=== PATIENT | female | born 1985 | race American Indian/Alaskan Native ===

== ENCOUNTER 2017-09-08 16:13 | Emergency (ER) | payer SELFPAY | END 2017-09-08 16:45 | disposition other institution (70) | LOC: LB.ED 16:13 | DX: Z53.21 Procedure and treatment not carried out due to patient leaving prior to being seen by health care provider (principal) ==

== ENCOUNTER 2017-09-08 17:10 | Observation (INO) | payer SELFPAY ==
[2017-09-08] MEDS ORDERED: Sodium Chloride 0.9% 1,000 ML IV ONE (18:00)
[2017-09-08] MEDS ORDERED: Acetaminophen 650 MG Tab.ER ONE (18:50)
[2017-09-08] MEDS: Acetaminophen 325 MG Tab PO PRN (18:51)
[2017-09-08] MEDS: Sodium Chloride 0.9% 1,000 ML IV SCH (19:23)
[2017-09-08] MEDS ORDERED: oxyCODONE 5 MG Tab PO ONE (19:53)
[2017-09-08] MEDS ORDERED: Ondansetron 4 MG/2 ML SDV ONE ×2 (20:56→20:58)
[2017-09-08] MEDS: Ondansetron 4 MG/2 ML SDV IVPUSH PRN (21:05)
[2017-09-08] MEDS ORDERED: GI Cocktail Oral Solution 30 ML PO ONE (22:08)
--- NOTE | 2017-09-09 00:37 | HP ---
DATE OF ADMISSION: 09/08/2017 HISTORY OF PRESENT ILLNESS: This 31-year-old lady is being admitted through the clinic with abdominal pain, nausea, and vomiting. These symptoms started yesterday. She states that she has vomited multiple times. She does have Zofran that she has been taking at home 4 mg. She does not feel it is helping her. The pain is most prominent in the upper right quadrant, but the entire abdomen feels irritated at this point. The patient does not feel feverish. She denies any recent falls or injuries. The patient is . She is approximately 7 weeks gestation. She is not having any vaginal discharge. She tells me that she has a 1-year-old baby who was sick yesterday with nausea and vomiting, but the baby is doing well today. The patient is here visiting. She is from out of the area. PAST MEDICAL HISTORY: The patient has 3 children at home. They are healthy. She states she has had a lot of problems with morning sickness, but this feels a little different. She takes a multivitamin only as well as the Zofran p.r.n. She is not on any other medications. SURGICAL HISTORY: 1. Cholecystectomy. 2. x3. OBJECTIVE: GENERAL APPEARANCE: The patient is awake and alert. She currently rates her pain at 5/10. VITAL SIGNS: Reviewed. Initially blood pressure was elevated when taken in the clinic at 150/105, when taken in the hospital, it was 111/87. She is afebrile. Pulse is 86, respirations 16, O2 sats are 99% on room air. LUNGS: Clear. CARDIAC: Heart sounds distinct. ABDOMEN: Soft. There is mild tenderness diffusely with palpation. The patient has more significant pain involving the midline epigastric area out to the right upper quadrant area with palpation. Bowel sounds are present. SKIN: Warm and dry. ASSESSMENT AND PLAN: The patient is being admitted for observation. She will be given 1 L of fluid normal saline in a bolus form followed by infusion of 125 per hour. We will increase her Zofran to 8 mg IV q.6 hours p.r.n. We will try some Tylenol 650 mg every 4 hours for pain control, and the patient will be on a clear diet. We will monitor her progress through the night and see how she does by morning. CRS/MODL MTDD
[2017-09-09] MEDS: Sodium Chloride 0.9% 1,000 ML IV SCH ×2 (03:40→12:09)
[2017-09-09] MEDS: Ondansetron 4 MG/2 ML SDV IVPUSH PRN ×2 (03:55→08:08)
[2017-09-09] MEDS ORDERED: Pantoprazole 40 MG Vial IVPUSH ONE (04:15)
[2017-09-09] MEDS ORDERED: [UNRECOGNIZED DRUG - REMARK] PO SCH (08:00)
[2017-09-09] MEDS ORDERED: Metoclopramide 10 MG Tab PO ONE (15:24)
--- NOTE | 2017-09-09 15:58 | US ---
DATE OF SERVICE: 09/09/17 CLINICAL DATA: Abd pain ABDOMEN ULTRASOUND: The gallbladder is absent, consistent with the patient's surgical history. The liver is normal size with homogeneous echogenicity. No focal hepatic lesions. No intra or extrahepatic biliary duct dilatation. The common bile duct measures 4 mm. The pancreas appears normal. The spleen appears normal. The right and left kidneys appear normal. No aortic aneurysm. No masses. No abnormal fluid collections. [id number] [facility]
--- NOTE | 2017-09-09 16:01 | US ---
DATE OF SERVICE: 09/09/17 CLINICAL DATA: R/O ECTOPIC OB ULTRASOUND: There is a single intrauterine containing a pole with a crown rump length of 1.4 cm, consistent with 7 weeks, 5 days gestation. Cardiac activity was noted. The heart rate is 156 bpm. The ÁNGEL is 04/23/2016. [id number] [facility]
[2017-09-09] MEDS ORDERED: Metoclopramide 10 MG Tab ONE (19:07)
--- NOTE | 2017-09-10 01:57 | DISCH ---
This lady has been here since yesterday evening for hyperemesis gravidarum. She was given IV fluids last evening and overnight. She initially was on Zofran. We increased the dose to 8 mg IV, and she was given 1 dose of Protonix IV early this morning after a GI cocktail produced some relief. The patient's abdominal pain has slowly but surely decreased, but she continued to have problems with nausea and vomiting or retching activities especially after trying to eat anything. She was on a clear liquid diet. This afternoon, I consulted with Dr. Galvez after which per his suggestion, I gave the patient Reglan 10 mg p.o. as well as meclizine 25 mg p.o. Within an hour or so, the patient stated that her nausea was gone, and she is feeling much better. She did eat most of her supper tonight, advancing to a regular diet and states that she is not having any nausea. She has just mild abdominal pressure. She feels this is from the nausea and vomiting that she had earlier. The patient states that she feels good. At this point, the patient will be discharged. We will send her home with some more Reglan tablets and meclizine tablets to take as needed, and I do want the patient to follow up with regular doctor within a couple of days. They plan on returning home tomorrow. They live in [place]. RIKA/[place] /[id number]
== END 2017-09-09 20:12 | disposition home or self-care (01) ==
LOC: LB.CLINIC 17:10 → UNDOADMOB 17:50 → LB.MS 17:50
PROVIDERS: ADMIT Physician Assistant; ATTEND Nurse Practitioner Family
DX: O21.0 Mild hyperemesis gravidarum (principal); Z3A.01 Less than 8 weeks gestation of pregnancy; Z79.899 Other long term (current) drug therapy
CPT/HCPCS: 36415; 76700; 76801; 80048; 81001; 84702; 85025; 96361; 96374; 96375; 96376; 99217; 99218; A9270-GY; C9113; G0378; J2405; J7040